=== PATIENT | female | born 1995 | race Caucasian/White ===

== ENCOUNTER 2020-01-23 19:07 | Emergency (ER) | payer OTHER ==
[~2020-01-23] VITALS: Ht 177.8 cm; Wt 72.7 kg
[2020-01-23] MEDS ORDERED: HYDROcodone/APAP 5/325MG 1 TAB TABLET PO ONE (21:30)
--- NOTE | 2020-01-23 21:38 | PHYS DOC ---
Past Medical History Past Medical History: No Pertinent History Past Surgical History: Other Additional Past Surgical Histo: FACIAL CYST REMOVAL Smoking Status: Current Every Day Smoker Alcohol Use: Occasionally Drug Use: None General Adult EDM: Chief Complaint: FOOT INJURY PAIN HPI: HPI: Patient is a 24 year old Female who presents with states she was roughhousing with her friend when her left foot bent back under the rest of the foot in a forward motion. She states she heard a loud pop in the foot. She now has some bruising to the dorsal mid part of the foot with some 2+ swelling and tenderness with palpation and also to the posterior foot right directly in the center with 2+ swelling and tenderness with palpation. She can still wiggle her toes. She denies any ankle pain or injury. Patient denies numbness or tingling. Patient's only history is smoker and facial cyst. Patient rates her pain a aching 8 out of 10. She states that she took Aleve prior to coming. Review of Systems: Review of Systems: Constitutional: Denies fever or chills. [] Eyes: Denies change in visual acuity. [] HENT: Denies nasal congestion or sore throat. [] Respiratory: Denies cough or shortness of breath. [] Cardiovascular: Denies chest pain. + Left foot edema. [] GI: Denies abdominal pain, nausea, vomiting, bloody stools or diarrhea. [] : Denies dysuria. [] Musculoskeletal: Denies back pain. +Left foot joint pain. [] Integument: Denies rash. +Foot bruising [] Neurologic: Denies headache, focal weakness or sensory changes. [] Endocrine: Denies polyuria or polydipsia. [] Lymphatic: Denies swollen glands. [] Psychiatric: Denies depression or anxiety. [] Heart Score: Risk Factors: Risk Factors: DM, Current or recent (<one month) smoker, HTN, HLP, family history of CAD, obesity. Risk Scores: Score 0 - 3: 2.5% MACE over next 6 weeks - Discharge Home Score 4 - 6: 20.3% MACE over next 6 weeks - Admit for Clinical Observation Score 7 - 10: 72.7% MACE over next 6 weeks - Early Invasive Strategies Current Medications: Current Medications Medications (Trade) Dose Ordered Sig/Sharon Start Time Stop Time Status Last Admin Dose Admin Acetaminophen/ Hydrocodone Bitart (Lortab 5/325) 1 tab 1X ONCE 01/23/20 21:30 01/23/20 21:31 DC Allergies: Allergies: Allergies Coded Allergies Type Severity Reaction Last Updated Verified No Known Drug Allergies 01/23/20 No Physical Exam: PE: Constitutional: Well developed, well nourished, no acute distress, non-toxic appearance. [] HENT: Normocephalic, atraumatic, bilateral external ears normal, oropharynx moist, no oral exudates, nose normal. [] Eyes: PERRLA, EOMI, conjunctiva normal, no discharge. [] Neck: Normal range of motion, no tenderness, supple, no stridor. [] Cardiovascular:Heart rate regular rhythm, no murmur [] Lungs & Thorax: Bilateral breath sounds clear to auscultation [] Abdomen: Bowel sounds normal, soft, no tenderness, no masses, no pulsatile masses. [] Skin: Warm, dry, no erythema, no rash. Dorsal left foot bruising [] Back: No tenderness, no CVA tenderness. [] Extremities: Left dorsal and posterior mid foot tenderness, no cyanosis, no clubbing, ROM intact, left dorsal and mid posterior foot 2+ edema. [] Neurologic: Alert and oriented X 3, normal motor function, normal sensory function, no focal deficits noted. [] Psychologic: Affect normal, judgement normal, mood normal. [] Current Patient Data: Labs: Laboratory Tests Test 01/23/20 20:58 POC Urine HCG, Qualitative Hcg negative (Negative) Vital Signs: Vital Signs Date Time Temp Pulse Resp B/P (MAP) Pulse Ox O2 Delivery O2 Flow Rate FiO2 01/23/20 20:10 98.2 67 18 121/72 (88) 100 Room Air 98.2 EKG: EKG: [] Radiology/Procedures: Radiology/Procedures: [] Impression: [facility] [address] [place] [address] IMAGING REPORT Signed PATIENT: GERARD CALHOUN BACCOUNT: [id number] : 1995 LOCATION: ER AGE: 24 SEX: F EXAM STATUS: REG ER ORD. PHYSICIAN: SUSI VELA APRN REASON: SWELLING, PAIN, BRUISING, INJURY PROCEDURE: FOOT LEFT 3V Left foot 3 views: Reason for examination: Injured with pain, swelling and bruising. There are fractures at the bases of the second, third and fourth metatarsal bones. There is a 2.5 mm lateral displacement of the distal end of the second metatarsal bone. The third is not displaced. The fourth metatarsal fracture shows a 2 mm lateral displacement of the distal end of the metatarsal. No other sites of fracture or dislocation is seen. The bone density is normal. No abnormal periosteal reaction is seen. IMPRESSION: Fracture at the bases of the second, third and fourth metatarsal bones with mild displacement laterally of the second and fourth fractures. Electronically signed by: Demario Shukla MD (01/23/2020 10:05 PM) [facility] DICTATED and SIGNED BY: DEMARIO SHUKLA MD DATE: 01/23/20 [id number] 0 Course & Med Decision Making: Course & Med Decision Making Pertinent Labs and Imaging studies reviewed. (See chart for details) See HPI. Speaks in full complete sentences. Alert and oriented x4. Skin pink warm and dry. Pedal pulses strong and present. Patient can wiggle her toes. Cap refill less than 2 seconds. Xray shows IMPRESSION: Fracture at the bases of the second, third and fourth metatarsal bones with mild displacement laterally of the second and fourth fractures. Patient is placed in a short posterior leg splint because we do not have any walking boots in the ED. Splint assessment: Neurovascularly intact post splint replacement with good fit. Patient's extremity symptoms have stabilized well they have been evaluated in the department and are appropriate for outpatient follow-up. No evidence of compartment syndrome, neurologic injury, vascular injury, open joint, open fracture, tendon laceration, or foreign body. [] Dragon Disclaimer: Dragon Disclaimer: This electronic medical record was generated, in whole or in part, using a voice recognition dictation system. Departure Departure Impression: Primary Impression: Metatarsal bone fracture Qualified Codes: S92.302A - Fracture of unspecified metatarsal bone(s), left foot, initial encounter for closed fracture Disposition: 01 DC HOME SELF CARE/HOMELESS Condition: STABLE Referrals: NON,STAFF (PCP) ARA GOMEZ MD Patient Instructions: Metatarsal Fracture with Rehab-SportsMed Additional Instructions: Follow-up with orthopedic as soon as possible. Take medication as prescribed to help with pain. Use elevation and ice. Scripts Ibuprofen (IBUPROFEN) 600 Mg Tablet 600 MG PO PRN Q6HRS PRN for INFLAMMATION, #20 TAB Prov: SUSI VELA APRN 01/23/20 Hydrocodone/Apap 5-325 (NORCO 5-325 TABLET) 1 Each Tablet 1 TAB PO PRN Q6HRS PRN for PAIN, #12 TAB 0 Refills Prov: SUSI VELA APRN 01/23/20 SUSI VELA APRN Jan 23, 2020 21:38
--- NOTE | 2020-01-23 22:07 | RAD ---
Left foot 3 views: Reason for examination: Injured with pain, swelling and bruising. There are fractures at the bases of the second, third and fourth metatarsal bones. There is a 2.5 mm lateral displacement of the distal end of the second metatarsal bone. The third is not displaced. The fourth metatarsal fracture shows a 2 mm lateral displacement of the distal end of the metatarsal. No other sites of fracture or dislocation is seen. The bone density is normal. No abnormal periosteal r eaction is seen. IMPRESSION: Fracture at the bases of the second, third and fourth metatarsal bones with mild displacement lateral ly of the second and fourth fractures. Electronically signed by: Kacie Faria MD (01/23/2020 10:05 PM) [facility]
[2020-01-23] MEDS ORDERED: IBUP-1007 PO (22:15)
[2020-01-23] MEDS ORDERED: HYDR-3164 PO (22:15)
[2020-01-23 23:28] VITALS: BP 132/84
== END 2020-01-23 23:28 | disposition home or self-care (01) ==
LOC: ER 19:07
DX: S92.332A Displaced fracture of third metatarsal bone, left foot, initial encounter for closed fracture (principal); S92.342A Displaced fracture of fourth metatarsal bone, left foot, initial encounter for closed fracture; R60.0 Localized edema; F17.200 Nicotine dependence, unspecified, uncomplicated; Z98.890 Other specified postprocedural states; W18.39XA Other fall on same level, initial encounter; Y93.89 Activity, other specified; Y92.89 Other specified places as the place of occurrence of the external cause; Y99.8 Other external cause status
CPT/HCPCS: 29515; 73630; 81025; 99284